=== PATIENT | male | born 1950 | race Two or more races ===

== ENCOUNTER 2016-09-11 10:31 | Emergency (ER) | payer MEDICARE ==
[2016-09-11 10:37] VITALS: BMI 27.4
--- NOTE | 2016-09-11 11:53 | PDOC ---
History of Present Illness - General Chief Complaint: Pain Stated Complaint: LT LEG PAIN Time Seen by Provider: 09/11/16 10:59 History Source: Patient Exam Limitations: No Limitations - History of Present Illness Initial Comments: 09/11/16 11:34 66-year-old male presents to the ED with complaints of worsening left posterior leg pain for the past 2 days now causing him difficulty to ambulate. Has not taken anything for the above and decided to go see Dr. Novoa who told him to go to the ER instead. Patient denies shortness of breath, recent surgery, recent illness, history of DVTs, recent change in medications, recent fall, chest pain, or dizziness. History of hypertension, dyslipidemia, arthritis and neuropathy. Timing/Duration: getting worse Associated Symptoms: denies: fever/chills, weakness Past History - Past Medical History Allergies/Adverse Reactions: Allergies Allergy/AdvReac Type Severity Reaction Status Date / Time No Known Allergies Allergy Verified 09/11/16 10:37 Home Medications: Ambulatory Orders Amlodipine Besylate [Norvasc -] 5 mg PO DAILY 09/11/16 Aspirin [ASA -] 81 mg PO DAILY 09/11/16 Baclofen 10 mg PO BID 09/11/16 Linagliptin/Metformin HCl [Jentadueto 2.5 mg-1000 mg Tab] 1 each PO BID Losartan Potassium 50 mg PO DAILY 09/11/16 Meloxicam 7.5 mg PO DAILY 09/11/16 Oxycodone HCl/Acetaminophen [Percocet 5-325 mg Tablet] 1 tab PO BID PRN #10 tab MDD 4 09/11/16 Pravastatin Sodium 20 mg PO DAILY 09/11/16 Diabetes: Yes HTN: Yes Hypercholesterolemia: Yes Other medical history: Arthritis, Neuropathy - Surgical History GI Surgery: (Kiney stones) - Psycho/Social/Smoking Cessation Hx Suicidal Ideation: No Smoking History: Never smoked Information on smoking cessation initiated: No Hx Alcohol Use: No Drug/Substance Use Hx: No Substance Use Type: None Patient Lives Alone: No Lives with/in: spouse/SO Review of Systems - Review of Systems Able to Perform ROS?: Yes Constitutional: No: Symptoms Reported HEENTM: No: Symptoms Reported Respiratory: No: Symptoms reported Cardiac (ROS): No: Symptoms Reported Musculoskeletal: Yes: Muscle Pain (left calf), Joint Stiffness (mild left knee) . No: Back Pain, Joint Pain, Joint Swelling, Muscle Weakness Neurological: No: Tingling, Weakness, Dizziness Endocrine: No: Symptoms Reported Hematologic/Lymphatic: No: Symptoms Reported *Physical Exam - Vital Signs Last Vital Signs Temp Pulse Resp BP Pulse Ox 97.5 F L 81 18 127/70 98 09/11/16 10:36 09/11/16 10:36 09/11/16 10:36 09/11/16 10:36 09/11/16 10:36 - Physical Exam General Appearance: Yes: Nourished, Appropriately Dressed. No: Apparent Distress Respiratory/Chest: positive: Lungs Clear, Normal Breath Sounds. negative: Respiratory Distress, Accessory Muscle Use Cardiovascular: positive: Regular Rhythm, Regular Rate. negative: Murmur Gastrointestinal/Abdominal: positive: Soft. negative: Tenderness Extremity: positive: Normal Capillary Refill, Normal Inspection, Normal Range of Motion, Tender (left calf), Other ( negative Homans). negative: Coldness, Delayed Capillary Refill, Pedal Edema, Swelling, Erythema Integumentary: positive: Normal Color, Warm, Moist Neurologic: positive: Motor Strength 5/5 (ambulatory but with limp and noted discomfort with weightbearing to the left lower extremity) ED Treatment Course - LABORATORY CBC & Chemistry Diagram: 09/11/16 12:43 09/11/16 12:43 - RADIOLOGY Radiology Studies Ordered: Category Date Time Status DUPLEX VASCUL US-1 LEG [US] Stat Ultrasound 09/11/16 11:09 Ordered Medical Decision Making - Medical Decision Making 09/11/16 11:48 Patient here with left leg pain worsened with ambulation and over the past 3 days. Patient had calf Tenderness on exam. Patient ordered for DVT study. Patient currently on pravastatin. Patient also concerning for muscle cramps related to statin usage. Patient will also be added for CBC, comp, CK, and magnesium level 09/11/16 16:15 Laboratory Tests 09/11/16 12:43 Sodium 141 Potassium 4.3 Chloride 104 Carbon Dioxide 25 Anion Gap 12 BUN 21 H Creatinine 0.9 Creat Clearance w eGFR > 60 Random Glucose 178 H Calcium 8.7 Magnesium 1.6 L Total Bilirubin 0.4 AST 30 ALT 22 Alkaline Phosphatase 62 Total Protein 6.3 L Albumin 3.7 Ultrasound negative for acute findings. Patient states feeling better after receiving the medication. Patient will be given 2 g of magnesium. 09/11/16 16:15 Patient does not have an IV access. Patient will be given magnesium oxide 800 mg and discharged home with recommendations to take Tylenol with Percocet. 09/11/16 16:30 Laboratory Tests 09/11/16 12:43 Creatine Kinase 114 Troponin I < 0.02 *DC/Admit/Observation/Transfer Diagnosis at time of Disposition: Left leg pain, Hypomagnesemia - Discharge Dispostion Disposition: HOME Condition at time of disposition: Improved - Prescriptions Prescriptions: Oxycodone HCl/Acetaminophen [Percocet 5-325 mg Tablet] 1 tab PO BID PRN #10 tab MDD 4 PRN Reason: Pain - Referrals Referrals: Enmanuel Novoa MD [Primary Care Provider] - - Patient Instructions Printed Discharge Instructions: DI for Leg Pain Additional Instructions: Please follow up with Dr. Novoa as your labs including your ultrasound were negative. May take 1 Percocet with 2 Tylenol to alleviate your discomfort
[2016-09-11 13:01] LABS: BASOPHIL 0.6 % (0-2.0); EOSINOPHIL 5.3 % (0-4.5); MCH 31.7 pg (25.7-33.7); MCHC 33.2 g/dl (32.0-35.9); MEAN CELL VOLUME 95.6 fl (80-96); MEAN PLT VOLUME 8.9 fl (7.5-11.1); NEUTROPHILS 70.2 % (42.8-82.8); PLATELET COUNT 184 K/MM3 (134-434); RDW 12.3 % (11.9-15.9); WHITE BLOOD COUNT 6.7 K/mm3 (4.0-10.0)
[2016-09-11] MEDS ORDERED: OXYCODONE/APAP 5/325MG COMBO TABLET PO ONE (14:15)
[2016-09-11] MEDS ORDERED: ACETAMINOPHEN 325 MG TABLET (FP) PO ONE (14:15)
[2016-09-11] MEDS ORDERED: ACETAMINOPHEN 325 MG TABLET (FP) ONE (14:16)
[2016-09-11] MEDS ORDERED: OXYCODONE/APAP 5/325MG COMBO TABLET ONE (14:17)
[2016-09-11 16:02] LABS: GLUCOSE,RANDOM 178 mg/dL (74-106)
[2016-09-11 16:03] LABS: ALBUMIN 3.7 g/dl (3.4-5.0); ANION GAP 12 (8-16); CALCIUM 8.7 mg/dL (8.5-10.1); CO2 25 mmol/L (21-32); MAGNESIUM 1.6 mg/dL (1.8-2.4)
[2016-09-11 16:11] LABS: ALK PHOS 62 U/L (45-117); BILIRUBIN,TOTAL 0.4 mg/dL (0.2-1.0); CREATININE 0.9 mg/dL (0.7-1.3); SGOT/AST 30 U/L (15-37); SGPT/ALT 22 U/L (12-78); TOT PROT 6.3 g/dl (6.4-8.2)
[2016-09-11] MEDS ORDERED: MAGNESIUM OXIDE 400 MG TABLET (FP) PO ONE (16:21)
[2016-09-11] MEDS ORDERED: MAGNESIUM OXIDE 400 MG TABLET (FP) ONE (16:26)
[2016-09-11] MEDS ORDERED: MAGNESIUM SULF 50% (8.12 MEQ/2 ML-1 GM VIAL) ONE (16:26)
[2016-09-11] MEDS: MAGNESIUM SULF 50% (8.12 MEQ/2 ML-1 GM VIAL) IVPB ONE ×2 (16:27→16:30)
[2016-09-11 16:28] LABS: TROPONIN I < 0.02 ng/ml (0.00-0.05)
[2016-09-11 16:38] VITALS: BP 134/74; PULSE 80; TEMP 98.6
== END 2016-09-11 16:37 | disposition home or self-care (01) ==
LOC: JER 10:31
PROC: 3E033GC Introduction of Other Therapeutic Substance into Peripheral Vein, Percutaneous Approach (ICD-10-PCS; principal; 2016-09-11)
DX: M79.662 Pain in left lower leg (principal); E83.42 Hypomagnesemia; I10 Essential (primary) hypertension; E11.9 Type 2 diabetes mellitus without complications; Z79.84 Long term (current) use of oral hypoglycemic drugs; E78.00 Pure hypercholesterolemia, unspecified; M12.9 Arthropathy, unspecified
CPT/HCPCS: 36415; 80053; 82550; 83735; 84484; 85025; 93971-TC; 99283-25

== ENCOUNTER 2016-10-01 12:11 | Inpatient (IN) | payer MEDICARE, OTHER ==
[2016-10-01 12:23] VITALS: BMI 25.2
--- NOTE | 2016-10-01 12:40 | PDOC ---
History of Present Illness - History of Present Illness Initial Comments: 10/01/16 12:43 The patient is a 66 year old male, with a significant past medical history of hypertension, dyslipidemia, arthritis, herniated discs, chronic left knee pain, and neuropathy (taking Gabapentin and Lyrica), who presents to the emergency department for progressive left lower extremity pain for 3 weeks. He states his pain radiates from the left side of his lower back down his left leg. He states he has not been able to bear weight on his left lower extremity or lie on his left side secondary to his pain. He reports calling Dr. Novoa this morning and being referred to the ED. The patient denies having recent x-rays of his spine. He denies chest pain, shortness of breath, headache and dizziness. He denies fever, chills, nausea, vomit, diarrhea and constipation. He denies dysuria, frequency, urgency and hematuria. Allergies: NKDA Social history: Denies toxic habits PCP - Dr. Novoa <Jackie De Jesus - Last Filed: 10/01/16 17:07> <Vania Abbott - Last Filed: 10/03/16 10:16> - General Chief Complaint: Pain Stated Complaint: LEFT LEG PAIN Time Seen by Provider: 10/01/16 12:26 Past History <Jackie De Jesus - Last Filed: 10/01/16 17:07> - Past Medical History Diabetes: Yes HTN: Yes Hypercholesterolemia: Yes - Surgical History GI Surgery: (Kiney stones) - Psycho/Social/Smoking Cessation Hx Anxiety: No Suicidal Ideation: No Smoking History: Never smoked Have you smoked in the past 12 months: No Information on smoking cessation initiated: No Hx Alcohol Use: No Drug/Substance Use Hx: No Substance Use Type: None <Vania Abbott - Last Filed: 10/03/16 10:16> - Past Medical History Allergies/Adverse Reactions: Allergies Allergy/AdvReac Type Severity Reaction Status Date / Time No Known Allergies Allergy Verified 10/01/16 12:23 Home Medications: Ambulatory Orders Amlodipine Besylate [Norvasc -] 5 mg PO DAILY 09/11/16 Aspirin [ASA -] 81 mg PO DAILY 09/11/16 Meloxicam 7.5 mg PO DAILY 09/11/16 Cyclobenzaprine HCl [Flexeril 10 mg] 1 tab PO DAILY 10/01/16 Gabapentin 300 mg PO TID 10/01/16 Insulin Degludec [Tresiba Flextouch U-200] 20 units SQ DAILY 10/01/16 [place]-3 Acid Ethyl Esters 1 tab PO TID 10/01/16 Pravastatin Sodium [Pravachol -] 1 tab PO DAILY 10/01/16 Pregabalin [Lyrica -] 50 mg PO TID 10/01/16 Review of Systems - Review of Systems Able to Perform ROS?: Yes Comments:: 10/01/16 12:43 GENERAL/CONSTITUTIONAL: No fever or chills. No weakness. HEAD, EYES, EARS, NOSE AND THROAT: No change in vision. No ear pain or discharge. No sore throat. CARDIOVASCULAR: No chest pain or shortness of breath. RESPIRATORY: No cough, wheezing, or hemoptysis. GASTROINTESTINAL: No nausea, vomiting, diarrhea or constipation. GENITOURINARY: No dysuria, frequency, or change in urination. MUSCULOSKELETAL: (+) LLE pain radiating from lumbar. No joint or muscle swelling. No neck pain. SKIN: No rash NEUROLOGIC: No headache, vertigo, loss of consciousness, or change in strength/ sensation. ENDOCRINE: No increased thirst. No abnormal weight change. HEMATOLOGIC/LYMPHATIC: No anemia, easy bleeding, or history of blood clots. ALLERGIC/IMMUNOLOGIC: No hives or skin allergy. <Jackie De Jesus - Last Filed: 10/01/16 17:07> *Physical Exam - Vital Signs Last Vital Signs Temp Pulse Resp BP Pulse Ox 98.4 F 126 H 24 141/81 99 10/01/16 12:20 10/01/16 12:20 10/01/16 12:20 10/01/16 12:20 10/01/16 12:20 - Physical Exam Comments: 10/01/16 12:47 GENERAL: (+) Pt appears uncomfortable. Awake, alert, and fully oriented, in no acute distress HEAD: No signs of trauma EYES: PERRLA, EOMI, sclera anicteric, conjunctiva clear ENT: Auricles normal inspection, hearing grossly normal, nares patent, oropharynx clear without exudates. Moist mucosa NECK: Normal ROM, supple, no lymphadenopathy, JVD, or masses LUNGS: Breath sounds equal, clear to auscultation bilaterally. No wheezes, and no crackles HEART: Regular rate and rhythm, normal S1 and S2, no murmurs, rubs or gallops ABDOMEN: Soft, nontender, normoactive bowel sounds. No guarding, no rebound. No masses EXTREMITIES: Normal range of motion, no edema. No clubbing or cyanosis. No cords, erythema, or tenderness NEUROLOGICAL: Cranial nerves II through XII grossly intact. Normal speech SKIN: Warm, Dry, normal turgor, no rashes or lesions noted. <Jackie De Jesus - Last Filed: 10/01/16 17:07> - Vital Signs Last Vital Signs Temp Pulse Resp BP Pulse Ox 98.4 F 126 H 24 141/81 99 10/01/16 12:20 10/01/16 12:20 10/01/16 12:20 10/01/16 12:20 10/01/16 12:20 <Vania Abbott - Last Filed: 10/03/16 10:16> ED Treatment Course - LABORATORY CBC & Chemistry Diagram: 10/01/16 17:50 10/01/16 17:50 <Vania Abbott - Last Filed: 10/03/16 10:16> Medical Decision Making - Medical Decision Making 10/01/16 12:49 Dr. Novoa was called at 12:43 and the patient's case was discussed. Dr. Novoa was paged via phone answering service at 17:09 requesting a callback for doctor to doctor consult. <Jackie De Jesus - Last Filed: 10/01/16 17:07> - Medical Decision Making On initial discussion with Dr. Novoa, he stated patient had chronic L knee pain and was being treated with analgesics and muscle relaxers. However, today the pain appears more consistent with sciatica. He has L low back pain radiating to the outer portion of the lower leg. After he received robaxin and two doses of percocet he did not improve at all. Will admit for pain control and further workup. <Vania Abbott - Last Filed: 10/03/16 10:16> *DC/Admit/Observation/Transfer - Attestations Scribe Attestion: 10/01/16 12:49 Documentation prepared by Jackie De Jesus, acting as durable medical equipment technician for Vania Abbott MD, MD <Jackie De Jesus - Last Filed: 10/01/16 17:07> - Discharge Dispostion Admit: Yes <Vania Abbott - Last Filed: 10/03/16 10:16> Diagnosis at time of Disposition: Back pain with left-sided sciatica, Intractable pain - Discharge Dispostion Condition at time of disposition: Stable - Referrals
[2016-10-01] MEDS ORDERED: OXYCODONE/APAP 5/325MG COMBO TABLET PO ONE ×2 (12:46→15:30)
[2016-10-01] MEDS ORDERED: OXYCODONE/APAP 5/325MG COMBO TABLET ONE ×2 (12:51→15:36)
[2016-10-01] MEDS ORDERED: METHOCARBAMOL 500 MG TABLET PO ONE (15:30)
[2016-10-01] MEDS ORDERED: METHOCARBAMOL 500 MG TABLET ONE (15:36)
[2016-10-01] MEDS ORDERED: ACETAMINOPHEN 325 MG TABLET (FP) PO PRN (17:34)
[2016-10-01] MEDS ORDERED: ONDANSETRON *ODT* 4 MG TABLET SL PRN (17:34)
[2016-10-01] MEDS ORDERED: morphine CARPU-JECT 4 MG/1 ML DISP.SYRIN IVPUSH PRN (17:34)
[2016-10-01 17:44] LABS: BASOPHIL 0.3 % (0-2.0); EOSINOPHIL 2.6 % (0-4.5); MCH 32.3 pg (25.7-33.7); MCHC 34.2 g/dl (32.0-35.9); MEAN CELL VOLUME 94.4 fl (80-96); MEAN PLT VOLUME 9.1 fl (7.5-11.1); NEUTROPHILS 68.2 % (42.8-82.8); PLATELET COUNT 212 K/MM3 (134-434); RDW 12.6 % (11.9-15.9); WHITE BLOOD COUNT 10.5 K/mm3 (4.0-10.0)
[2016-10-01 18:25] LABS: ALBUMIN 3.9 g/dl (3.4-5.0); ANION GAP 8 (8-16); BILIRUBIN,TOTAL 0.5 mg/dL (0.2-1.0); CO2 26 mmol/L (21-32); COCKROFT - GAULT 75.11; CREATININE 0.9 mg/dL (0.7-1.3); GLUCOSE,RANDOM 227 mg/dL (74-106); SGPT/ALT 37 U/L (12-78)
[2016-10-01 18:26] LABS: ALK PHOS 77 U/L (45-117)
[2016-10-01 18:27] LABS: SGOT/AST 44 U/L (15-37)
[2016-10-01 19:05] LABS: MCH 31.7 pg (25.7-33.7); MCHC 33.7 g/dl (32.0-35.9); MEAN CELL VOLUME 94.1 fl (80-96); MEAN PLT VOLUME 9.7 fl (7.5-11.1); PLATELET COUNT 202 K/MM3 (134-434); RDW 12.3 % (11.9-15.9); WHITE BLOOD COUNT 10.5 K/mm3 (4.0-10.0)
[2016-10-01 19:32] LABS: ALBUMIN 3.8 g/dl (3.4-5.0); ALK PHOS 79 U/L (45-117); ANION GAP 10 (8-16); BILIRUBIN,TOTAL 0.4 mg/dL (0.2-1.0); CALCIUM 9.1 mg/dL (8.5-10.1); CO2 27 mmol/L (21-32); GLUCOSE,RANDOM 214 mg/dL (74-106); SGOT/AST 35 U/L (15-37); SGPT/ALT 36 U/L (12-78); TOT PROT 6.8 g/dl (6.4-8.2)
[2016-10-01 20:43] LABS: C-REACTIVE PROTEIN 0.7 MG/DL (0.00-0.3)
[2016-10-01] MEDS ORDERED: diazePAM CARPU-JECT 10 MG/2 ML DISP.SYRIN IVPUSH ONE (20:59)
[2016-10-01] MEDS ORDERED: INSULIN (NOVOLOG) ASPART 100 UNITS/ML 10ML VIAL ONE (21:08)
[2016-10-01] MEDS: INSULIN SLIDING SCALE (NOVOLOG) 1 VIAL SQ SCH (21:18)
[2016-10-01] MEDS: HEPARIN NA (PORCINE) 5,000 UNITS/ML 1ML VIAL SQ SCH (21:19)
[2016-10-01] MEDS ORDERED: INSULIN DETEMIR 100 UNITS/ML MDV SQ SCH (22:00)
[2016-10-01 22:14] LABS: ERYTHROCYTE SEDIMENTATION RATE 32 mm/hr (0-20)
[2016-10-02] MEDS: INSULIN SLIDING SCALE (NOVOLOG) 1 VIAL SQ SCH ×4 (06:32→21:24)
--- NOTE | 2016-10-02 08:40 | PN ---
Progress Note (short form) - Note Progress Note: NEUROSURGERY CONSULT DICTATED Chart reviewed Pt examined H/o hypertension, osteoarthritis, DM, DDD (old work injury years ago), chronic left knee pain, and LE neuropathy (numbness and tingling) on Gabapentin and Lyrica, c/o progressive left lower extremity pain for 3 weeks. Pain radiates from the left LB down his left posterior thigh, calf and ankle. States he has not been able to bear weight/walk on his left lower extremity or lie on his left side. PE: AF, VSS HEENT- NC/AT; Neck- supple; Cor- RRR; Lungs- CTA B; Abd-benign; Ext- no sign of DVT; 1-2+ pulses CN- intact; Motor 5/5 except L PF 4+; Sensation- decreased vibration B feet; DTR - hyporeflexia B LE except R knee 2+ LS spine x-rays- extensive spondylosis and mild kyphosis over TL junction, no acute fx LS spine CT- Multilevel spondylosis and facet hypertrophy, worst mid and lower LS spine; calcified central disc protrusion L5-S1, B foramenal narrowing L4-5, L5-S1 and R L2-3 and L3-4 foramenal narrowing; mild-moderate central stenosis ( chronic given calcification) LS spine MRI recommended though pt states he is extremely claustrophobic and needs open MRI Pain management consult Consider urology input EMG/NCS lowers Restart gabapentin
[2016-10-02 09:07] LABS: URINE APPEARANCE CLEAR; URINE BILIRUBIN NEGATIVE (NEGATIVE); URINE BLOOD NEGATIVE (NEGATIVE); URINE COLOR YELLOW; URINE GLUCOSE (UA) 3+ (NEGATIVE); URINE KETONE NEGATIVE (NEGATIVE); URINE LEUK ESTERASE NEGATIVE (NEGATIVE); URINE NITRITE NEGATIVE (NEGATIVE); URINE PROTEIN NEGATIVE (NEGATIVE); URINE UROBILINOGEN NEGATIVE E.U./dl (0.2-1.0)
[2016-10-02] MEDS ORDERED: diazePAM 5 MG TABLET PO ONE ×2 (09:31→18:30)
--- NOTE | 2016-10-02 09:53 | PN ---
Progress Note (short form) - Note Progress Note: Pt is a 66 year old male pt with c/o acute on chronic LBP, and recent left leg sciatica. It got so severe he was unable to ambulate, and presented to the ER. This morning he states the pain is definitely about 30% improved, maybe more. While lyinh in bed the LLE sciatica is much better as well. AVSS Pt The pt is in no acute distress, he looks very comfortable. Min tenderness to palpation over the LS spine, and the paraspinal muscles. The LLE looks good, he is in little to no pain with motion, motion at the left hip, knee, ankle, foot, toes are all nl Excellent strength throughout including 5/5 ankle DF/PF, hip flexion, knee flexion and extension. No pain with resistance testing. Left hip looks good, no pain with motion, IR/ER, log rolling or axial load. LLE overall looks good and is NVI. Xrays Show LS OA, no acute pathology except reversal of lumbar lordosis CT Scan LS spine Show LS OA, L5-S1 spinal stenosis, L2-3-4 OA and hypertrophic disc complex impinging on the RIGHT L4-5-S1 neural foramen. Imp 66 yo M with [id number] LBP and Left leg sciatica, studies show OA with impingement. Rec Consult by Dr Reji Osman Options include surgery, epidural cortisone injection, oral steroids, pain meds, P.T.
[2016-10-02] MEDS: amLODIPine BESYLATE 5 MG TABLET (FP) PO SCH (09:57)
[2016-10-02] MEDS: RANITIDINE HCL 150 MG TABLET (FP) PO SCH (09:57)
[2016-10-02] MEDS: LOSARTAN POTASSIUM 50 MG TABLET (FP) PO SCH (09:57)
[2016-10-02] MEDS: HEPARIN NA (PORCINE) 5,000 UNITS/ML 1ML VIAL SQ SCH ×2 (09:57→21:23)
--- NOTE | 2016-10-02 10:21 | CONS ---
DATE OF CONSULTATION: REQUESTING PHYSICIAN: Enmanuel Novoa MD CONSULTING PHYSICIAN: Jenaro Quezada MD CHIEF COMPLAINT: Left lower extremity radiculopathy. HISTORY OF PRESENT ILLNESS: The patient is a 66-year-old right-handed male with a history of lumbar disk herniation from an old work injury decades ago, hypertension, osteoarthritis, diabetes, chronic left knee pain, and peripheral neuropathy of the lower extremities who complains of increasing left lower extremity pain over 3 weeks' duration. He denies any recent trauma or fall. He was not involved in an accident. The pain radiates from the left side of the lower back to the left buttock, posterior thigh, calf, and ankle. He has not been able to bear weight on his left lower extremity and walk because of the pain. He received a lot of pain medication in the emergency room and was not able to void, and a Heller catheter was inserted as a result. He has no prior bowel or bladder dysfunction. He has minimal right lower extremity symptoms. There has been no recent fever or chills, and he has no recent infection reported. There is no history of systemic malignancy. PAST MEDICAL HISTORY: Significant for lumbar degenerative disk disease, diabetes, peripheral neuropathy, hypertension, osteoarthritis. CURRENT MEDICATIONS: Included Tylenol, Cozaar, subcutaneous heparin, Norvasc, Zantac, NovoLog, Levemir, morphine. ALLERGIES: There is no known drug allergy. FAMILY HISTORY: Noncontributory. SOCIAL HISTORY: He does not smoke and only drinks alcohol socially. He is retired. REVIEW OF SYSTEMS: Otherwise negative for other major cardiovascular, pulmonary , gastrointestinal, genitourinary, endocrinologic, neurologic, or psychological problems except for the above. PHYSICAL EXAMINATION: Vital Signs: Temperature 97.8, blood pressure 142/78 with pulse rate 97, O2 saturation 99% on room air. HEENT: Shows her to be normocephalic and atraumatic. Anicteric. Neck: Supple with no lymphadenopathy. There is no carotid bruit. Coronary: Demonstrates a regular rhythm. Lungs: Clear bilaterally. Abdomen: Benign. Extremities: Shows no signs of DVT. Distal pulses are 1 to 2+ and symmetric bilaterally and distally in the lower extremities. Neurologic: He is awake, alert, and oriented x3. Cranial nerves are grossly intact 2-12. Motor examination shows 5/5 strength except for left foot plantar flexion , which is 4+/5 limited by pain. Sensory examination is intact to light touch and pinprick even though he has decreased distal vibratory sensation at distal bilateral lower extremities consistent with peripheral neuropathy. Deep tendon reflexes are generally hyporeflexive. He does have normal reflexes right knee. There is no pathologic long tract sign. LABORATORY EXAMINATION: Shows BUN 31 and creatinine 1, estimated GFR greater than 60, serum glucose 214, hemoglobin A1C is pending. White blood cell count 10,500 , hemoglobin 14.3, hematocrit 42.6, ESR 32, platelet count 202. Urinalysis is pending. X-rays of the lumbar spine demonstrated multilevel degenerative disk disease and spondylosis. There is reversal with normal lumbar lordosis at thoracolumbar junction. There is no acute fracture or dislocation. CT scan of the lumbar spine demonstrated multilevel degenerative disk disease. There is slight kyphosis of the thoracolumbar junction similar to lumbar spine x-rays. There is an osteophyte of L2-L3 and L3-L4 resulting in foraminal narrowing. This is also combined with degenerative broad-based disk bulge. There is disk bulge at L4-L5 and S1 with bilateral foraminal narrowing. There is mild spinal stenosis at L5-S1 level secondary to the facet hypertrophy, broad-based calcified disk protrusion as well as ligamentum hypertrophy. IMPRESSION: 1. Multilevel lumbar degenerative disk disease with central calcified disk protrusion at L5-S1. 2. Clinical left S1 radiculopathy. 3. Diabetes with diabetic peripheral neuropathy. 4. Osteoarthritis. 5. Hypertension. RECOMMENDATIONS: The patient presents with chronic back pain in the past from old work-related injuries from decades earlier. He has a [id number] of acute left-sided sciatica and has difficulty with ambulation. CT scan demonstrated chronic disk protrusion at L5-S1 with some spinal canal narrowing at that level. An MRI of the lumbar spine is recommended; however, the patient states that he is extremely claustrophobic and will need an open MRI. Given his acute sciatica, one would like to consider continuing gabapentin right now as a neurotrophic agent for the treatment of his current condition. Pain management consult input is appropriate at this time. An EMG and nerve conduction studies also are indicated to rule out left S1 radiculopathy versus peripheral neuropathy. Given that CT scan only demonstrated chronic findings, it is unlikely that his current worsening of the bladder function is related to that. Perhaps Urology consult could be considered given his extending urinary bladder and history of diabetes. This could be a sequel to diabetic peripheral neuropathy as well. JENARO QUEZADA M.D. KEMAR/[id number] MTDD
--- NOTE | 2016-10-02 10:55 | HP ---
Admitting History and Physical - Primary Care Physician PCP: Enmanuel Novoa - Admission Chief Complaint: SEVERE BACK PAIN WITH NUMBNESS IN LEGS/URINARY RETENTION/ LUMBAGO ACUTE History of Present Illness: PATIENT HAS HAD SEVERE BACK WORSENING OVER THE LAST WEEK WITH SEVERE NUMBNESS TINGLING IN LEGS, DEVELOPED URINARY RETENTION WHERE A KEATING WAS INSERTRED TO VOID. HISTORY OF DM/HTN/OA. History Source: Patient Limitations to Obtaining History: No Limitations - Past Medical History Cardiovascular: Yes: HTN Musculoskeletal: Yes: Osteoarthritis Endocrine: Yes: Diabetes Insipidus - Smoking History Smoking history: Never smoked Have you smoked in the past 12 months: No - Alcohol/Substance Use Hx Alcohol Use: No Home Medications - Allergies Allergies/Adverse Reactions: Allergies Allergy/AdvReac Type Severity Reaction Status Date / Time No Known Allergies Allergy Verified 10/01/16 12:23 - Home Medications Home Medications: Ambulatory Orders Amlodipine Besylate [Norvasc -] 5 mg PO DAILY 09/11/16 Aspirin [ASA -] 81 mg PO DAILY 09/11/16 Meloxicam 7.5 mg PO DAILY 09/11/16 Cyclobenzaprine HCl [Flexeril 10 mg] 1 tab PO DAILY 10/01/16 Gabapentin 300 mg PO TID 10/01/16 Insulin Degludec [Tresiba Flextouch U-200] 20 units SQ DAILY 10/01/16 Lane-3 Acid Ethyl Esters 1 tab PO TID 10/01/16 Pravastatin Sodium [Pravachol -] 1 tab PO DAILY 10/01/16 Pregabalin [Lyrica -] 50 mg PO TID 10/01/16 Review of Systems - Review of Systems Constitutional: reports: Loss of Appetite Eyes: reports: No Symptoms HENT: reports: No Symptoms Neck: reports: No Symptoms Cardiovascular: reports: No Symptoms Respiratory: reports: No Symptoms Gastrointestinal: reports: No Symptoms Genitourinary: reports: Dysuria, Pain, Other (RETENTION) Musculoskeletal: reports: Back Pain Integumentary: reports: No Symptoms Neurological: reports: Numbness, Parasthesia, Unsteady Gait, Weakness Endocrine: reports: No Symptoms Hematology/Lymphatic: reports: No Symptoms Psychiatric: reports: No Symptoms Physical Examination Vital Signs: Vital Signs Temperature 97.8 F 10/02/16 06:00 Pulse Rate 97 H 10/02/16 06:00 Respiratory Rate 20 10/02/16 06:00 Blood Pressure 142/78 10/02/16 06:00 O2 Sat by Pulse Oximetry (%) 99 10/02/16 03:00 Constitutional: Yes: Severe Distress Eyes: Yes: WNL HENT: Yes: WNL Neck: Yes: WNL Cardiovascular: Yes: WNL Respiratory: Yes: WNL Gastrointestinal: Yes: WNL Renal/: Yes: [place] Present, Oliguria Musculoskeletal: Yes: Back Pain Extremities: Yes: Other Edema: No Peripheral Pulses WNL: Yes Integumentary: Yes: Other Wound/Incision: Yes: Clean/Dry Neurological: Yes: Numbness, Paresthesia, Tingling, Unsteady Gait, Weakness ...Motor Strength: LLE, RLE Psychiatric: Yes: Other Labs: CBC, BMP 10/01/16 17:50 10/01/16 17:50 Imaging - Results Cat Scan: Report Reviewed Problem List - Problems (1) Back pain with left-sided sciatica Code(s): M54.32 - SCIATICA, LEFT SIDE (2) Intractable pain Code(s): R52 - PAIN, UNSPECIFIED (3) Hypomagnesemia Code(s): E83.42 - HYPOMAGNESEMIA (4) Left leg pain Code(s): M79.605 - PAIN IN LEFT LEG (5) Acute urinary retention Code(s): R33.8 - OTHER RETENTION OF URINE Assessment/Plan DECADRON IV STARTED TO DECOMPRESS LUMBAR DISC MONITOR BGM CLOSELY DM, LEVEMIR INCREASED BID KEATING INSERTED FOR URINARY RETENTION NEUROSURGERY AND ORTHOPEDIC EVAL MRI LSPINE TODAY CHANGE TO ADMISSION
[2016-10-02] MEDS ORDERED: INSULIN (NOVOLOG) ASPART 100 UNITS/ML 10ML VIAL ONE ×2 (11:45→21:20)
[2016-10-02] MEDS: DEXAMETHASONE SOD PHOSPHATE 4 MG/1 ML VIAL IVPB SCH ×2 (11:48→17:37)
--- NOTE | 2016-10-02 11:48 | CONSULT ---
Consult - text type - Consultation Consultation Note: Neurology The patient is a 66 year old male, with a significant past medical history of hypertension, dyslipidemia, arthritis, herniated discs, chronic left knee pain, and neuropathy (taking Gabapentin and Lyrica), who presented to the emergency department for progressive left lower extremity pain for 3 weeks. He states his pain radiates from the left side of his lower back down his left leg. He states he has not been able to bear weight on his left lower extremity or lie on his left side secondary to his pain. He reports calling Dr. Novoa this morning and being referred to the ED. The patient denies having recent imaging. He had physical therapy visit this morning and was not able to bear weight according to the nurse. He has been put on pain medication and seen by Dr. Reji Osman as well as Dr. Batista. EMG ordered to evaluate for radiculopathy, not likely neuropathy given distribution of symptoms of sciatica. Pain mgmt may be helpful. - General Chief Complaint: Pain Stated Complaint: LEFT LEG PAIN Time Seen by Provider: 10/01/16 12:26 Past History - Past Medical History Diabetes: Yes HTN: Yes Hypercholesterolemia: Yes - Surgical History GI Surgery: (Kiney stones) - Psycho/Social/Smoking Cessation Hx Anxiety: No Suicidal Ideation: No Smoking History: Never smoked Have you smoked in the past 12 months: No Information on smoking cessation initiated: No Hx Alcohol Use: No Drug/Substance Use Hx: No Substance Use Type: None - Past Medical History Allergies/Adverse Reactions: Allergies Allergy/AdvReac Type Severity Reaction Status Date / Time No Known Allergies Allergy Verified 10/01/16 12:23 Active Medications Acetaminophen (Tylenol -) 650 mg PO Q6H PRN PRN Reason: FEVER OR PAIN Amlodipine Besylate (Norvasc -) 5 mg PO DAILY [facility] Last Admin: 10/02/16 09:57 Dose: 5 mg Dexamethasone Sodium Phosphate (Decadron Injection -) 4 mg IVPB Q8H-IV [facility] Last Admin: 10/02/16 11:48 Dose: 4 mg Gabapentin (Neurontin -) 300 mg PO TID [facility] Heparin Sodium (Porcine) (Heparin -) 5,000 unit SQ BID [facility] Last Admin: 10/02/16 09:57 Dose: 5,000 unit Insulin Aspart (Novolog Vial Sliding Scale -) 1 vial SQ ACHS [facility] PRN Reason: Protocol Last Admin: 10/02/16 11:49 Dose: 2 units Insulin Detemir (Levemir Vial) 20 units SQ BID@0700,2200 [facility] Losartan Potassium (Cozaar -) 50 mg PO DAILY [facility] Last Admin: 10/02/16 09:57 Dose: 50 mg Morphine Sulfate (Morphine Injection -) 4 mg IVPUSH Q4H PRN PRN Reason: PAIN Last Admin: 10/02/16 05:16 Dose: 4 mg Ondansetron HCl (Zofran Odt -) 4 mg SL Q6H PRN PRN Reason: NAUSEA AND/OR VOMITING Ranitidine HCl (Zantac -) 150 mg PO DAILY [facility] Last Admin: 10/02/16 09:57 Dose: 150 mg Review of Systems GENERAL/CONSTITUTIONAL: No fever or chills. No weakness. HEAD, EYES, EARS, NOSE AND THROAT: No change in vision. No ear pain or discharge. No sore throat. CARDIOVASCULAR: No chest pain or shortness of breath. RESPIRATORY: No cough, wheezing, or hemoptysis. GASTROINTESTINAL: No nausea, vomiting, diarrhea or constipation. GENITOURINARY: No dysuria, frequency, or change in urination. MUSCULOSKELETAL: (+) LLE pain radiating from lumbar. No joint or muscle swelling. No neck pain. SKIN: No rash NEUROLOGIC: No headache, vertigo, loss of consciousness, or change in strength/ sensation. ENDOCRINE: No increased thirst. No abnormal weight change. HEMATOLOGIC/LYMPHATIC: No anemia, easy bleeding, or history of blood clots. ALLERGIC/IMMUNOLOGIC: No hives or skin allergy. *Physical Exam - Vital Signs Last Vital Signs Temp Pulse Resp BP Pulse Ox 98.4 F 126 H 24 141/81 99 10/01/16 12:20 10/01/16 12:20 10/01/16 12:20 10/01/16 12:20 10/01/16 12:20 GENERAL: (+) Pt appears uncomfortable. Awake, alert, and fully oriented, in no acute distress HEAD: No signs of trauma EYES: PERRLA, EOMI, sclera anicteric, conjunctiva clear ENT: Auricles normal inspection, hearing grossly normal, nares patent, oropharynx clear without exudates. Moist mucosa NECK: Normal ROM, supple, no lymphadenopathy, JVD, or masses LUNGS: Breath sounds equal, clear to auscultation bilaterally. No wheezes, and no crackles HEART: Regular rate and rhythm, normal S1 and S2, no murmurs, rubs or gallops ABDOMEN: Soft, nontender, normoactive bowel sounds. No guarding, no rebound. No masses EXTREMITIES: Normal range of motion, no edema. No clubbing or cyanosis. No cords, erythema, or tenderness NEUROLOGICAL: Cranial nerves II through XII grossly intact. Normal speech, Motor 5/5 except LLE 4/5; reflexes 1+, gait deferred SKIN: Warm, Dry, normal turgor, no rashes or lesions noted. Imaging: LS spine x-rays- extensive spondylosis and mild kyphosis over TL junction, no acute fx LS spine CT- Multilevel spondylosis and facet hypertrophy, worst mid and lower LS spine; calcified central disc protrusion L5-S1, B foramenal narrowing L4-5, L5-S1 and R L2-3 and L3-4 foramenal narrowing; mild-moderate central stenosis ( chronic given calcification) Plan: 66 year old male, with a significant past medical history of hypertension, dyslipidemia, arthritis, herniated discs, chronic left knee pain, and neuropathy (taking Gabapentin and Lyrica), who presented to the emergency department for progressive left lower extremity pain for 3 weeks. He states his pain radiates from the left side of his lower back down his left leg. He states he has not been able to bear weight on his left lower extremity or lie on his left side secondary to his pain. He reports calling Dr. Novoa this morning and being referred to the ED. The patient denies having recent imaging. Agree with MRI L spine, may require sedative. Seen by Dr. Reji Osman as well as Dr. Batista. Surgical intervention as per them EMG ordered to evaluate for radiculopathy, not likely neuropathy given distribution of symptoms of sciatica. Pain mgmt consult may be helpful. Monitor sedation with opiod medications (morphine) Agree with Decadron, monitor surgars, on Insulin for DM PPI Continue physical therapy as able DVT ppx Fall precautions
[2016-10-02] MEDS: INSULIN DETEMIR 100 UNITS/ML MDV SQ SCH ×3 (12:28→21:24)
[2016-10-02] MEDS: GABAPENTIN 300 MG CAPSULE (FP) PO SCH ×2 (13:09→21:47)
--- NOTE | 2016-10-02 19:00 | CONSULT ---
Consult - text type - Consultation Consultation Note: CC: acute urinary retention HPI: Patient is a 66 year old male with lumbosacral disc herniation admitted for pain. The patient was unable to void and the bladder scan showed 800 cc and a holcomb was placed with 1000 cc drained of clear urine. The patient had moderate symptoms of prostatism prior. PE 3+ prostate imp acute urinary retention due of lumbosacral disease on narcotics plan started on flomax and will remove holcomb on Thursday morning
--- NOTE | 2016-10-02 19:42 | CONS ---
DATE OF CONSULTATION: 10/02/2016 DATE OF ELECTRODIAGNOSTIC STUDIES: 10/02/2016 PHYSICAL MEDICINE REHABILITATION CONSULTATION HISTORY OF PRESENT ILLNESS: The patient is a 66-year-old male with past medical history of diabetes, peripheral neuropathy, as well as a distant history of disk herniation who presented with progressive pain in the left lower extremity for the last 3-4 weeks. Patient states prior to onset, he had minor discomfort in his back and left knee but developed severe pain. The pain can start in his back and radiate down into the left ankle and foot. He already has numbness in both of his feet and wears socks to bed for the last 2 years, and this has been diagnosed at least clinically with polyneuropathy treated with gabapentin, Lyrica. Patient is unable to put any pressure into the left foot. He was admitted, undergoing a CAT scan of the lumbar spine as well as x-rays to the lumbar spine . There was marked diffuse disk bulging resulting in bilateral neuroforaminal impingement at L4-5 and L5-S1. Spinal stenosis is also noted at L5-S1. There was a disk osteophyte on the right side at L2-3, but he has only mild symptoms on the right side. Patient's x-rays showed degenerative changes on the facet joints. Patient started on medication, IV steroids, Decadron. He is on subcutaneous heparin for DVT prophylaxis and Neurontin 300 mg 3 times a day, but continues to have significant pain. He has chronic rotator cuff tear on the left shoulder. PAST MEDICAL AND SURGICAL HISTORY: Again, he did have a disk herniation decades ago, history of hypertension, dyslipidemia, diabetes with elevated hemoglobin A1c. Possible surgery for kidney stone. SOCIAL HISTORY: Lives with his in a basement apartment. Apparently she has problems with her mobility. There are 3 steps, and premorbidly again he was able to ambulate without an assistive device 4 weeks ago but progressive difficulty with his mobility. Current function, patient states he has been unable to stand or put weight into the left lower extremity. He was seen by physical therapy and attempted to stand. He transferred to sit-stand with minimal assistance, but only able to stand for a brief time with minimum assist and using a walker due to severe back pain and left lower extremity pain. REVIEW OF SYSTEMS: No headache. No dizziness. No blurry vision, dull vision. No nausea, vomiting, difficulty swallowing, difficulty chewing. No chest pain, shortness of breath, fever or chills. No bowel incontinence. He has a Heller catheter and he had numbness in the upper and lower extremities, coldness in his feet, particularly at night. Back pain radiating into the left ankle and hughes. Chronic weakness in the left shoulder, difficulty elevating the shoulder. Review of blood work on admission sodium 140, potassium 4.4, elevated BUN 31, creatinine normal at 1.0. B12 was normal at 535. C-reactive protein mildly high at 0.7. Hemoglobin A1c was quite high at 8.0. CBC showed mild elevation WBC 10.5 on admission and repeated 10.5 also. Hemoglobin normal 14.3, platelet count 202, ESR slightly elevated at 32. On examination, patient seen lying in a stretcher. He is in some distress, especially when trying to turn. PHYSICAL EXAMINATION: HEENT: Normocephalic, atraumatic. Extraocular muscles appear intact. Neck: Supple. Back: He has some tenderness in his left lumbosacral paraspinals, left gluteal musculature, positive straight leg raise test on the left. Extremities: Without any pitting edema or calf tenderness. Neuromuscular: He is awake, alert, cooperative. Cranial nerves 2-12 appear grossly intact. Diminished sensation distally in the upper and lower extremities to pinprick, cold temperature, vibration, but fairly good motor power. He does have some atrophy in the feet, intrinsic muscles, but otherwise fairly good motor power in the lower extremities. He has weakness in the left shoulder girdle with a positive drop arm and some tightness and difficulty supinating in the left upper extremity but fairly good muscle bulk and good strength in the proximal right upper extremity. Good passive range in the left shoulder. Reflexes are absent. Results of EMG nerve conduction studies, please refer to report for details. OVERALL IMPRESSION: 1. Left L4 and L5 acute radiculopathy. 2. Underlying severe axonal and demyelinating sensory motor polyneuropathy consistent with an advanced diabetic polyneuropathy which is probably incidental. 3. No electrodiagnostic evidence of right lumbosacral radiculopathy. 4. Difficult gait disorder. 5. Canal stenosis noted on CAT scan with underlying neuroforaminal narrowing at multiple levels. 6. Noncontrolled diabetes with complicated by peripheral neuropathy. 7. Hypertension. 8. Osteoarthritis. 9. Elevated risk for deep vein thrombosis due to immobility. 10. Elevated white blood cell and slightly elevated ESR and CRP. 11. Heller catheter. PLAN AND SUGGESTION: 1. Follow up with Dr. Osman and Dr. Obregon 2, Continue physical therapy. 3. Pain management. 4. Patient is on IV steroids. 5. Consider increasing gabapentin to 600 mg 4 times a day. 6. Agree with subcutaneous heparin. 7. Skin precaution. 8. Bowel regimen. 9. Wean Heller when able. 10. May require short term rehabilitation in prison facility. Thank you for this referral. JESUS DUNLAP M.D. QUAN/[id number] MTDD
[2016-10-03] MEDS: DEXAMETHASONE SOD PHOSPHATE 4 MG/1 ML VIAL IVPB SCH ×3 (02:21→17:45)
[2016-10-03] MEDS: GABAPENTIN 300 MG CAPSULE (FP) PO SCH ×3 (06:03→21:53)
--- NOTE | 2016-10-03 06:12 | PN ---
Progress Note (short form) - Note Progress Note: NEUROSURGERY H/o hypertension, osteoarthritis, DM, DDD (old work injury years ago), chronic left knee pain, and LE neuropathy (numbness and tingling), c/o progressive left lower extremity pain for 3 weeks. Pain radiates from the left LB down his left posterior thigh, calf and ankle. States he has not been able to bear weight/ walk on his left lower extremity. Pain better today. Seen by urology. On flomax. Able to void since Helelr out. PE: AF, VSS HEENT- NC/AT; Neck- supple; Cor- RRR; Lungs- CTA B; Abd-benign; Ext- no sign of DVT; 1-2+ pulses CN- intact; Motor 5/5 except L PF 4+; Sensation- decreased vibration B feet; DTR - hyporeflexia B LE except R knee 2+ LS spine x-rays- extensive spondylosis and mild kyphosis over TL junction, no acute fx LS spine CT- Multilevel spondylosis and facet hypertrophy, worst mid and lower LS spine; calcified central disc protrusion L5-S1, B foramenal narrowing L4-5, L5-S1 and R L2-3 and L3-4 foramenal narrowing; mild-moderate central stenosis ( chronic given calcification) MRI (prelim)- T10-11 and T11-12 disc protrusion with mild thecal sac impingement ; L L1-2 paracentral disc protrusion with L sided thecal sac impingement; R L3- 4 paracentral disc protrusion with thecal sac and R L4 root impingement; board disc protrusion L4-5 and L5-S1 the moderate canal stenosis and lateral recess stenosis; L3-4 retrolisthesis, facet hypertrophy EMG/NCS - moderate peripheral neuropathy; acute L L4-5 radiculopathy Multilevel disease (R,L, bilateral) making surgical tx less favorable with more uncertain outcome given overlapping neuropathy Pt would like to avoid surgery Consider pain management consult given 3 weeks of acute symptoms Restarted on gabapentin Pain overall better PT regimen
[2016-10-03] MEDS: INSULIN SLIDING SCALE (NOVOLOG) 1 VIAL SQ SCH ×4 (06:43→21:53)
[2016-10-03] MEDS: TAMSULOSIN HCL 0.4 MG CAP.ER.24H (FP) PO SCH (09:18)
[2016-10-03] MEDS: RANITIDINE HCL 150 MG TABLET (FP) PO SCH (09:19)
[2016-10-03] MEDS: HEPARIN NA (PORCINE) 5,000 UNITS/ML 1ML VIAL SQ SCH ×2 (09:20→21:53)
[2016-10-03] MEDS: LOSARTAN POTASSIUM 50 MG TABLET (FP) PO SCH ×2 (09:40→17:46)
[2016-10-03] MEDS: INSULIN DETEMIR 100 UNITS/ML MDV SQ SCH ×3 (09:40→21:52)
[2016-10-03] MEDS: amLODIPine BESYLATE 5 MG TABLET (FP) PO SCH ×2 (09:40→17:46)
--- NOTE | 2016-10-03 15:17 | PN ---
Progress Note, Physician Chief Complaint: AWAKE ALERT PATIENT REMOVED THE KEATING HIMSELF VOIDED 100 CC OF URINE JUST NOW ON FLOMAX FEELING SLIGHTLY BETTER - Current Medication List Current Medications: Active Medications Acetaminophen (Tylenol -) 650 mg PO Q6H PRN PRN Reason: FEVER OR PAIN Amlodipine Besylate (Norvasc -) 5 mg PO DAILY [facility] Last Admin: 10/03/16 09:40 Dose: Not Given Dexamethasone Sodium Phosphate (Decadron Injection -) 4 mg IVPB Q8H-IV [facility] Last Admin: 10/03/16 09:19 Dose: 4 mg Gabapentin (Neurontin -) 300 mg PO TID [facility] Last Admin: 10/03/16 14:18 Dose: 300 mg Heparin Sodium (Porcine) (Heparin -) 5,000 unit SQ BID [facility] Last Admin: 10/03/16 09:20 Dose: 5,000 unit Insulin Aspart (Novolog Vial Sliding Scale -) 1 vial SQ ACHS [facility] PRN Reason: Protocol Last Admin: 10/03/16 12:34 Dose: 4 units Insulin Detemir (Levemir Vial) 20 units SQ BID@0700,2200 [facility] Last Admin: 10/03/16 09:40 Dose: Not Given Losartan Potassium (Cozaar -) 50 mg PO DAILY [facility] Last Admin: 10/03/16 09:40 Dose: Not Given Morphine Sulfate (Morphine Injection -) 4 mg IVPUSH Q4H PRN PRN Reason: PAIN Last Admin: 10/02/16 05:16 Dose: 4 mg Ondansetron HCl (Zofran Odt -) 4 mg SL Q6H PRN PRN Reason: NAUSEA AND/OR VOMITING Ranitidine HCl (Zantac -) 150 mg PO DAILY [facility] Last Admin: 10/03/16 09:19 Dose: 150 mg Tamsulosin HCl (Flomax -) 0.4 mg PO DAILY@0830 [facility] Last Admin: 10/03/16 09:18 Dose: 0.4 mg - Objective Vital Signs: Vital Signs Temperature 97.8 F 10/03/16 13:57 Pulse Rate 105 H 10/03/16 13:57 Respiratory Rate 20 10/03/16 11:00 Blood Pressure 114/62 10/03/16 13:57 O2 Sat by Pulse Oximetry (%) 99 10/03/16 06:00 Constitutional: Yes: Mild Distress Eyes: Yes: WNL HENT: Yes: WNL Neck: Yes: WNL Cardiovascular: Yes: WNL Respiratory: Yes: WNL Gastrointestinal: Yes: WNL Genitourinary: Yes: Other Musculoskeletal: Yes: Back Pain, Muscle Weakness Extremities: Yes: WNL Edema: No Peripheral Pulses WNL: Yes Integumentary: Yes: WNL Wound/Incision: Yes: Clean/Dry Neurological: Yes: Unsteady Gait, Weakness ...Motor Strength: LLE, RLE Psychiatric: Yes: Other Problem List - Problems (1) Back pain with left-sided sciatica Code(s): M54.32 - SCIATICA, LEFT SIDE (2) Intractable pain Code(s): R52 - PAIN, UNSPECIFIED (3) Hypomagnesemia Code(s): E83.42 - HYPOMAGNESEMIA (4) Left leg pain Code(s): M79.605 - PAIN IN LEFT LEG (5) Acute urinary retention Code(s): R33.8 - OTHER RETENTION OF URINE Assessment/Plan DECADRON IV CHANGE TO PO ON THURSDAY [facility]OR [facility]
[2016-10-03] MEDS ORDERED: INSULIN (NOVOLOG) ASPART 100 UNITS/ML 10ML VIAL ONE (19:25)
[2016-10-04] MEDS: DEXAMETHASONE SOD PHOSPHATE 4 MG/1 ML VIAL IVPB SCH ×3 (01:29→17:12)
[2016-10-04] MEDS: GABAPENTIN 300 MG CAPSULE (FP) PO SCH ×3 (06:30→22:22)
[2016-10-04] MEDS: INSULIN SLIDING SCALE (NOVOLOG) 1 VIAL SQ SCH ×4 (06:51→22:22)
[2016-10-04] MEDS ORDERED: INSULIN (NOVOLOG) ASPART 100 UNITS/ML 10ML VIAL ONE ×3 (06:52→17:10)
--- NOTE | 2016-10-04 07:31 | PN ---
Progress Note, Physician History of Present Illness: Dr Ortiz covering for Dr Obregon H/o hypertension, osteoarthritis, DM, DDD (old work injury years ago), chronic left knee pain, and LE neuropathy (numbness and tingling), c/o progressive left lower extremity pain for 3 weeks. Pain radiates from the left LB down his left posterior thigh, calf and ankle x 4 weeks. He states he has issue with his arms, L >R x 3 years but attributes this to his shoulder surgery. Numbness of feet x one yr ? urine retention when holcomb pulled , and put back in. EMG and MRI's reviewed as wll as Dr Osman notes. MRI T10-11 and T11-12 disc protrusion with mild thecal sac impingement; L L1-2 paracentral disc protrusion with L sided thecal sac impingement; R L3-4 paracentral disc protrusion with thecal sac and R L4 root impingement; board disc protrusion L4-5 and L5-S1 the moderate canal stenosis and lateral recess stenosis; L3-4 retrolisthesis, facet hypertrophy EMG/NCS - moderate peripheral neuropathy; acute ++ based on denervation in the sampled UE muscles as well, ie EDC and ABP. acute L L4-5 radiculopathy, though difficult rosa decipher in setting of neuropathy. - Current Medication List Current Medications: Active Medications Acetaminophen (Tylenol -) 650 mg PO Q6H PRN PRN Reason: FEVER OR PAIN Amlodipine Besylate (Norvasc -) 5 mg PO DAILY [facility] Last Admin: 10/03/16 17:46 Dose: 5 mg Dexamethasone Sodium Phosphate (Decadron Injection -) 4 mg IVPB Q8H-IV [facility] Last Admin: 10/04/16 01:29 Dose: 4 mg Gabapentin (Neurontin -) 300 mg PO TID [facility] Last Admin: 10/04/16 06:30 Dose: 300 mg Heparin Sodium (Porcine) (Heparin -) 5,000 unit SQ BID [facility] Last Admin: 10/03/16 21:53 Dose: 5,000 unit Insulin Aspart (Novolog Vial Sliding Scale -) 1 vial SQ ACHS [facility] PRN Reason: Protocol Last Admin: 10/04/16 06:51 Dose: 2 units Insulin Detemir (Levemir Vial) 20 units SQ HS [facility] Last Admin: 10/03/16 21:52 Dose: 20 units Losartan Potassium (Cozaar -) 50 mg PO DAILY [facility] Last Admin: 10/03/16 17:46 Dose: 50 mg Morphine Sulfate (Morphine Injection -) 4 mg IVPUSH Q4H PRN PRN Reason: PAIN Last Admin: 10/02/16 05:16 Dose: 4 mg Ondansetron HCl (Zofran Odt -) 4 mg SL Q6H PRN PRN Reason: NAUSEA AND/OR VOMITING Ranitidine HCl (Zantac -) 150 mg PO DAILY [facility] Last Admin: 10/03/16 09:19 Dose: 150 mg Tamsulosin HCl (Flomax -) 0.4 mg PO DAILY@0830 [facility] Last Admin: 10/03/16 09:18 Dose: 0.4 mg - Objective Vital Signs: Vital Signs Temperature 97.9 F 10/04/16 06:00 Pulse Rate 89 10/04/16 06:00 Respiratory Rate 20 10/04/16 06:00 Blood Pressure 144/59 10/04/16 06:00 O2 Sat by Pulse Oximetry (%) 99 10/03/16 21:00 Neurological: Yes: Other (Awake and alert; EOMI, no tongue fasiculations , UE significant proximal weakness deltoid, BI 3/5 and TR 4/5, ; interossei 5/5; no focal weakness in LE with best effort. holcomb in place. absnet BI, BR, 2++TR, patellar 1+, Achilles trace, plantars dwon, no fasciculations noted) Problem List - Problems (1) Acute urinary retention Code(s): R33.8 - OTHER RETENTION OF URINE (2) Back pain with left-sided sciatica Code(s): M54.32 - SCIATICA, LEFT SIDE (3) Intractable pain Code(s): R52 - PAIN, UNSPECIFIED (4) Cervical myelopathy Code(s): G95.9 - DISEASE OF SPINAL CORD, UNSPECIFIED (5) Neuropathy Code(s): G62.9 - POLYNEUROPATHY, UNSPECIFIED Assessment/Plan H/o hypertension, osteoarthritis, DM, DDD (old work injury years ago), chronic left knee pain, and LE neuropathy (numbness and tingling), c/o progressive left lower extremity pain for 3 weeks. Pain radiates from the left LB down his left posterior thigh, calf and ankle x 4 weeks. He states he has issue with his arms, L >R x 3 years but attributes this to his shoulder surgery. Numbness of feet x one yr ? urine retention when holcomb pulled , and put back in. EMG and MRI's reviewed as wll as Dr Osman notes. exam suggests C5/C6 myelopathy given proximal weakness delotid, BI >TR; less likley myopathy this may explain urinary retention though left leg sx may be related to spinal stenosis (unrealted ) vs neuropathy. Unclear etiology for neuropathy as well, (this usually causes distal weakness and PT has prox UE weakness) agree to not pursue surgery with unclear picture CHeck MRI C spine CPK, RADHA, ESR, SPEP, HIV, hep, B12 , A1c. urology FU consider doppler LLE . Dr Ortiz [phone]
[2016-10-04] MEDS: amLODIPine BESYLATE 5 MG TABLET (FP) PO SCH (09:43)
[2016-10-04] MEDS: LOSARTAN POTASSIUM 50 MG TABLET (FP) PO SCH (09:45)
[2016-10-04] MEDS: TAMSULOSIN HCL 0.4 MG CAP.ER.24H (FP) PO SCH (09:45)
[2016-10-04] MEDS: HEPARIN NA (PORCINE) 5,000 UNITS/ML 1ML VIAL SQ SCH ×2 (09:46→22:22)
--- NOTE | 2016-10-04 10:40 | PN ---
Progress Note, Physician - Current Medication List Current Medications: Active Medications Acetaminophen (Tylenol -) 650 mg PO Q6H PRN PRN Reason: FEVER OR PAIN Amlodipine Besylate (Norvasc -) 5 mg PO DAILY [facility] Last Admin: 10/04/16 09:43 Dose: 5 mg Dexamethasone Sodium Phosphate (Decadron Injection -) 4 mg IVPB Q8H-IV [facility] Last Admin: 10/04/16 10:21 Dose: 4 mg Gabapentin (Neurontin -) 300 mg PO TID [facility] Last Admin: 10/04/16 06:30 Dose: 300 mg Heparin Sodium (Porcine) (Heparin -) 5,000 unit SQ BID [facility] Last Admin: 10/04/16 09:46 Dose: 5,000 unit Insulin Aspart (Novolog Vial Sliding Scale -) 1 vial SQ ACHS [facility] PRN Reason: Protocol Last Admin: 10/04/16 06:51 Dose: 2 units Insulin Detemir (Levemir Vial) 20 units SQ HS [facility] Last Admin: 10/03/16 21:52 Dose: 20 units Losartan Potassium (Cozaar -) 50 mg PO DAILY [facility] Last Admin: 10/04/16 09:45 Dose: 50 mg Morphine Sulfate (Morphine Injection -) 4 mg IVPUSH Q4H PRN PRN Reason: PAIN Last Admin: 10/02/16 05:16 Dose: 4 mg Ondansetron HCl (Zofran Odt -) 4 mg SL Q6H PRN PRN Reason: NAUSEA AND/OR VOMITING Ranitidine HCl (Zantac -) 150 mg PO DAILY [facility] Last Admin: 10/03/16 09:19 Dose: 150 mg Tamsulosin HCl (Flomax -) 0.4 mg PO DAILY@0830 [facility] Last Admin: 10/04/16 09:45 Dose: 0.4 mg - Objective Vital Signs: Vital Signs Temperature 97.9 F 10/04/16 06:00 Pulse Rate 89 10/04/16 06:00 Respiratory Rate 20 10/04/16 06:00 Blood Pressure 144/59 10/04/16 06:00 O2 Sat by Pulse Oximetry (%) 99 10/03/16 21:00 Constitutional: Yes: Calm Neck: Yes: WNL Cardiovascular: Yes: WNL Respiratory: Yes: WNL Gastrointestinal: Yes: WNL Problem List - Problems (1) Acute urinary retention Code(s): R33.8 - OTHER RETENTION OF URINE (2) Back pain with left-sided sciatica Code(s): M54.32 - SCIATICA, LEFT SIDE (3) Cervical myelopathy Code(s): G95.9 - DISEASE OF SPINAL CORD, UNSPECIFIED (4) Neuropathy Code(s): G62.9 - POLYNEUROPATHY, UNSPECIFIED Assessment/Plan (1) Back pain with left-sided sciatica Code(s): M54.32 - SCIATICA, LEFT SIDE (2) Intractable pain Code(s): R52 - PAIN, UNSPECIFIED (3) Hypomagnesemia Code(s): E83.42 - HYPOMAGNESEMIA (4) Left leg pain Code(s): M79.605 - PAIN IN LEFT LEG (5) Acute urinary retention Code(s): R33.8 - OTHER RETENTION OF URINE Assessment/Plan DECADRON IV CHANGE TO PO ON THURSDAY [facility]OR [facility] PATIENT PULLED OUT KEATING -> MONITOR [employer] [facility]
[2016-10-04 10:51] LABS: HIV 1 & 2 AB NEGATIVE; HIV 1 AGp24 NEGATIVE
[2016-10-04] MEDS: RANITIDINE HCL 150 MG TABLET (FP) PO SCH (11:55)
--- NOTE | 2016-10-04 14:12 | PN ---
Progress Note (short form) - Note Progress Note: NEUROSURGERY Heller reinserted PE: Tmax 98.4, AF, VSS HEENT- NC/AT; Neck- supple; Cor- RRR; Lungs- CTA B; Abd-benign; Ext- no sign of DVT; 1-2+ pulses CN- intact; Motor 5/5 except L PF 4+; now with decreased range of motion L shoulder; Sensation- decreased vibration B feet; DTR- hyporeflexia B LE except R knee 2+; ambulating OOB earlier today MRI- T10-11 and T11-12 disc protrusion with mild thecal sac impingement; L L1-2 paracentral disc protrusion with L sided thecal sac impingement; R L3-4 paracentral disc protrusion with thecal sac and R L4 root impingement; board disc protrusion L4-5 and L5-S1 the moderate canal stenosis and lateral recess stenosis; L3-4 retrolisthesis, facet hypertrophy EMG/NCS - moderate peripheral neuropathy; acute L L4-5 radiculopathy Multilevel disease (R,L, and some bilateral) making surgical tx less favorable with more uncertain outcome given overlapping neuropathy Pt would like to avoid surgery C spine MRI per Dr Angel Diaz spine pathology common in face of extensive LS spine pathology Restarted on gabapentin
[2016-10-04] MEDS ORDERED: diazePAM 5 MG TABLET PO SCH (15:00)
[2016-10-04] MEDS: INSULIN DETEMIR 100 UNITS/ML MDV SQ SCH (22:23)
[2016-10-05] MEDS: DEXAMETHASONE SOD PHOSPHATE 4 MG/1 ML VIAL IVPB SCH ×3 (01:34→22:49)
[2016-10-05] MEDS: INSULIN SLIDING SCALE (NOVOLOG) 1 VIAL SQ SCH ×4 (06:37→22:45)
[2016-10-05] MEDS: GABAPENTIN 300 MG CAPSULE (FP) PO SCH ×3 (06:37→22:48)
--- NOTE | 2016-10-05 07:17 | PN ---
Progress Note (short form) - Note Progress Note: HPI : H/o hypertension, osteoarthritis, DM, DDD (old work injury years ago), chronic left knee pain, and LE neuropathy (numbness and tingling), c/o progressive left lower extremity pain for 3 weeks. Pain radiates from the left LB down his left posterior thigh, calf and ankle x 4 weeks. He states he has issue with his arms, L >R x 3 years but attributes this to his shoulder surgery. Numbness of feet x one yr ? urine retention when holcomb pulled , and put back in. EMG and MRI's reviewed as wll as Dr Osman notes. MRI T10-11 and T11-12 disc protrusion with mild thecal sac impingement; L L1-2 paracentral disc protrusion with L sided thecal sac impingement; R L3-4 paracentral disc protrusion with thecal sac and R L4 root impingement; board disc protrusion L4-5 and L5-S1 the moderate canal stenosis and lateral recess stenosis; L3-4 retrolisthesis, facet hypertrophy EMG/NCS - moderate peripheral neuropathy; acute ++ based on denervation in the sampled UE muscles as well, ie EDC and ABP. acute L L4-5 radiculopathy, though difficult rosa decipher in setting of neuropathy. FU: MRI C spine reviewed-- prelim C4/C5 cord compression with ABNL signal leg pain better holcomb in place - Current Medication List Current Medications: Active Medications Acetaminophen (Tylenol -) 650 mg PO Q6H PRN PRN Reason: FEVER OR PAIN Amlodipine Besylate (Norvasc -) 5 mg PO DAILY [facility] Last Admin: 10/03/16 17:46 Dose: 5 mg Dexamethasone Sodium Phosphate (Decadron Injection -) 4 mg IVPB Q8H-IV [facility] Last Admin: 10/04/16 01:29 Dose: 4 mg Gabapentin (Neurontin -) 300 mg PO TID [facility] Last Admin: 10/04/16 06:30 Dose: 300 mg Heparin Sodium (Porcine) (Heparin -) 5,000 unit SQ BID [facility] Last Admin: 10/03/16 21:53 Dose: 5,000 unit Insulin Aspart (Novolog Vial Sliding Scale -) 1 vial SQ ACHS [facility] PRN Reason: Protocol Last Admin: 10/04/16 06:51 Dose: 2 units Insulin Detemir (Levemir Vial) 20 units SQ HS [facility] Last Admin: 10/03/16 21:52 Dose: 20 units Losartan Potassium (Cozaar -) 50 mg PO DAILY [facility] Last Admin: 10/03/16 17:46 Dose: 50 mg Morphine Sulfate (Morphine Injection -) 4 mg IVPUSH Q4H PRN PRN Reason: PAIN Last Admin: 10/02/16 05:16 Dose: 4 mg Ondansetron HCl (Zofran Odt -) 4 mg SL Q6H PRN PRN Reason: NAUSEA AND/OR VOMITING Ranitidine HCl (Zantac -) 150 mg PO DAILY [facility] Last Admin: 10/03/16 09:19 Dose: 150 mg Tamsulosin HCl (Flomax -) 0.4 mg PO DAILY@0830 [facility] Last Admin: 10/03/16 09:18 Dose: 0.4 mg - Objective Vital Signs: stable Neurological: Yes: Other (Awake and alert; EOMI, no tongue fasiculations , UE significant proximal weakness deltoid, BI 3/5 and TR 4/5, ; interossei 5/5; no focal weakness in LE with best effort. holcomb in place. absnet BI, BR, 2++TR, patellar 1+, Achilles trace, plantars dwon, no fasciculations noted) Problem List Assessment/Plan H/o hypertension, osteoarthritis, DM, DDD (old work injury years ago), chronic left knee pain, and LE neuropathy (numbness and tingling), c/o progressive left lower extremity pain for 3 weeks. Pain radiates from the left LB down his left posterior thigh, calf and ankle x 4 weeks. He states he has issue with his arms, L >R x 3 years but attributes this to his shoulder surgery. Numbness of feet x one yr ? urine retention when holcomb pulled , and put back in. EMG and MRI's reviewed as wll as Dr Osman notes. exam suggests C5/C6 myelopathy given proximal weakness delotid, BI >TR; less likley myopathy this may explain urinary retention though left leg sx may be related to spinal stenosis (unrealted ) vs neuropathy. Unclear etiology for neuropathy as well, (this usually causes distal weakness and PT has prox UE weakness) MRI C spine prelim shows cord compression C4/C5--this would be the cause for severe proximla UE weakness-- will need surgical Follow up for this FU labs CPK, RADHA, ESR, SPEP, HIV, hep, B12 , A1c. Dr Ortiz [phone] Problem List - Problems (1) Acute urinary retention Code(s): R33.8 - OTHER RETENTION OF URINE (2) Back pain with left-sided sciatica Code(s): M54.32 - SCIATICA, LEFT SIDE (3) Intractable pain Code(s): R52 - PAIN, UNSPECIFIED (4) Cervical myelopathy Code(s): G95.9 - DISEASE OF SPINAL CORD, UNSPECIFIED (5) Neuropathy Code(s): G62.9 - POLYNEUROPATHY, UNSPECIFIED
[2016-10-05 08:32] LABS: BASOPHIL 0.1 % (0-2.0); MCHC 34.4 g/dl (32.0-35.9); MEAN CELL VOLUME 92.9 fl (80-96); MEAN PLT VOLUME 9.3 fl (7.5-11.1); NEUTROPHILS 92.2 % (42.8-82.8); PLATELET COUNT 191 K/MM3 (134-434); RDW 12.2 % (11.9-15.9); WHITE BLOOD COUNT 11.8 K/mm3 (4.0-10.0)
[2016-10-05 09:00] LABS: CALCIUM 8.9 mg/dL (8.5-10.1)
[2016-10-05 09:06] LABS: ALBUMIN 3.5 g/dl (3.4-5.0); ALK PHOS 68 U/L (45-117); ANION GAP 10 (8-16); BILIRUBIN,TOTAL 0.6 mg/dL (0.2-1.0); CO2 27 mmol/L (21-32); COCKROFT - GAULT 73.12; CREATININE 0.9 mg/dL (0.7-1.3); GLUCOSE,RANDOM 167 mg/dL (74-106); SGOT/AST 28 U/L (15-37); SGPT/ALT 37 U/L (12-78); TOT PROT 6.3 g/dl (6.4-8.2)
[2016-10-05] MEDS: LOSARTAN POTASSIUM 50 MG TABLET (FP) PO SCH (09:48)
[2016-10-05] MEDS: HEPARIN NA (PORCINE) 5,000 UNITS/ML 1ML VIAL SQ SCH ×2 (09:48→22:48)
[2016-10-05] MEDS: TAMSULOSIN HCL 0.4 MG CAP.ER.24H (FP) PO SCH (09:48)
[2016-10-05] MEDS: RANITIDINE HCL 150 MG TABLET (FP) PO SCH (09:48)
[2016-10-05] MEDS: amLODIPine BESYLATE 5 MG TABLET (FP) PO SCH (09:48)
[2016-10-05] MEDS ORDERED: INSULIN (NOVOLOG) ASPART 100 UNITS/ML 10ML VIAL ONE ×3 (11:30→22:44)
--- NOTE | 2016-10-05 15:16 | PN ---
Progress Note, Physician Chief Complaint: offered back surgery in past but refused 2/2 told no guarantee would be able to walk s/p surgery concerned about sick - Current Medication List Current Medications: Active Medications Acetaminophen (Tylenol -) 650 mg PO Q6H PRN PRN Reason: FEVER OR PAIN Amlodipine Besylate (Norvasc -) 5 mg PO DAILY [facility] Last Admin: 10/05/16 09:48 Dose: 5 mg Dexamethasone Sodium Phosphate (Decadron Injection -) 4 mg IVPB Q8H-IV [facility] Last Admin: 10/05/16 09:48 Dose: 4 mg Gabapentin (Neurontin -) 300 mg PO TID [facility] Last Admin: 10/05/16 13:39 Dose: 300 mg Heparin Sodium (Porcine) (Heparin -) 5,000 unit SQ BID [facility] Last Admin: 10/05/16 09:48 Dose: 5,000 unit Insulin Aspart (Novolog Vial Sliding Scale -) 1 vial SQ ACHS [facility] PRN Reason: Protocol Last Admin: 10/05/16 11:32 Dose: 10 units Insulin Detemir (Levemir Vial) 20 units SQ HS [facility] Last Admin: 10/04/16 22:23 Dose: 20 units Losartan Potassium (Cozaar -) 50 mg PO DAILY [facility] Last Admin: 10/05/16 09:48 Dose: 50 mg Morphine Sulfate (Morphine Injection -) 4 mg IVPUSH Q4H PRN PRN Reason: PAIN Last Admin: 10/02/16 05:16 Dose: 4 mg Ondansetron HCl (Zofran Odt -) 4 mg SL Q6H PRN PRN Reason: NAUSEA AND/OR VOMITING Ranitidine HCl (Zantac -) 150 mg PO DAILY [facility] Last Admin: 10/05/16 09:48 Dose: 150 mg Tamsulosin HCl (Flomax -) 0.4 mg PO DAILY@0830 [facility] Last Admin: 10/05/16 09:48 Dose: 0.4 mg - Objective Vital Signs: Vital Signs Temperature 97.4 F L 10/05/16 10:00 Pulse Rate 90 10/05/16 10:00 Respiratory Rate 18 10/05/16 10:00 Blood Pressure 122/67 10/05/16 10:00 O2 Sat by Pulse Oximetry (%) 99 10/03/16 21:00 Constitutional: Yes: Calm Neck: Yes: WNL Cardiovascular: Yes: WNL Respiratory: Yes: WNL Gastrointestinal: Yes: WNL Musculoskeletal: Yes: Back Pain Edema: No Labs: CBC, BMP 10/05/16 06:30 10/05/16 06:30 Problem List - Problems (1) Acute urinary retention Code(s): R33.8 - OTHER RETENTION OF URINE (2) Back pain with left-sided sciatica Code(s): M54.32 - SCIATICA, LEFT SIDE (3) Cervical myelopathy Code(s): G95.9 - DISEASE OF SPINAL CORD, UNSPECIFIED (4) Neuropathy Code(s): G62.9 - POLYNEUROPATHY, UNSPECIFIED Assessment/Plan (1) Back pain with left-sided sciatica Code(s): M54.32 - SCIATICA, LEFT SIDE (2) Intractable pain Code(s): R52 - PAIN, UNSPECIFIED (3) Hypomagnesemia Code(s): E83.42 - HYPOMAGNESEMIA (4) Left leg pain Code(s): M79.605 - PAIN IN LEFT LEG (5) Acute urinary retention Code(s): R33.8 - OTHER RETENTION OF URINE Assessment/Plan DECADRON IV TAPER INSULIN ADJUSTED SNF KEATING Cr NOT INCREASING PT ON CASE NEURO & NEUROSURG CONSULTS APPRECIATED UNCLEAR ETIOLOGY 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
[2016-10-05] MEDS ORDERED: INSULIN DETEMIR 100 UNITS/ML MDV SQ SCH (22:00)
[2016-10-06] MEDS: INSULIN SLIDING SCALE (NOVOLOG) 1 VIAL SQ SCH ×3 (06:31→17:13)
[2016-10-06] MEDS: GABAPENTIN 300 MG CAPSULE (FP) PO SCH ×2 (06:32→14:16)
[2016-10-06 07:56] LABS: BASOPHIL 0.1 % (0-2.0); MCHC 34.4 g/dl (32.0-35.9); MEAN CELL VOLUME 92.9 fl (80-96); MEAN PLT VOLUME 8.9 fl (7.5-11.1); PLATELET COUNT 194 K/MM3 (134-434); RDW 12.1 % (11.9-15.9); WHITE BLOOD COUNT 9.9 K/mm3 (4.0-10.0)
[2016-10-06 08:29] LABS: ALBUMIN 3.7 g/dl (3.4-5.0); ANION GAP 12 (8-16); CO2 25 mmol/L (21-32); GLUCOSE,RANDOM 149 mg/dL (74-106)
[2016-10-06 08:34] LABS: ALK PHOS 70 U/L (45-117); BILIRUBIN,TOTAL 0.7 mg/dL (0.2-1.0); COCKROFT - GAULT 82.26; CREATININE 0.8 mg/dL (0.7-1.3); SGOT/AST 29 U/L (15-37); SGPT/ALT 41 U/L (12-78); TOT PROT 6.5 g/dl (6.4-8.2)
[2016-10-06] MEDS ORDERED: INSULIN DETEMIR 100 UNITS/ML MDV SQ SCH (10:00)
[2016-10-06] MEDS: DEXAMETHASONE SOD PHOSPHATE 4 MG/1 ML VIAL IVPB SCH (10:06)
[2016-10-06] MEDS: RANITIDINE HCL 150 MG TABLET (FP) PO SCH (10:06)
[2016-10-06] MEDS: LOSARTAN POTASSIUM 50 MG TABLET (FP) PO SCH (10:06)
[2016-10-06] MEDS: amLODIPine BESYLATE 5 MG TABLET (FP) PO SCH (10:06)
[2016-10-06] MEDS: TAMSULOSIN HCL 0.4 MG CAP.ER.24H (FP) PO SCH (10:06)
[2016-10-06] MEDS: HEPARIN NA (PORCINE) 5,000 UNITS/ML 1ML VIAL SQ SCH (10:06)
[2016-10-06] MEDS ORDERED: INSULIN (NOVOLOG) ASPART 100 UNITS/ML 10ML VIAL ONE ×2 (11:25→17:11)
--- NOTE | 2016-10-06 11:51 | PN ---
Progress Note (short form) - Note Progress Note: Neurology The patient is a 66 year old male, with a significant past medical history of hypertension, dyslipidemia, arthritis, herniated discs, chronic left knee pain, and neuropathy (taking Gabapentin and Lyrica), who presented to the emergency department for progressive left lower extremity pain for 3 weeks. He states his pain radiates from the left side of his lower back down his left leg. He states he has not been able to bear weight on his left lower extremity or lie on his left side secondary to his pain. He reports calling Dr. Novoa this morning and being referred to the ED. The patient denies having recent imaging. Completed MRI C Spine and L spine. He has been put on pain medication and seen by Dr. Reji Osman for possible surgical intervention. Patient not interested in surgical management at this time. Spoke to son at bedside and they are considering physical therapy and detention facility placement with medication treatment. Active Medications Acetaminophen (Tylenol -) 650 mg PO Q6H PRN PRN Reason: FEVER OR PAIN Amlodipine Besylate (Norvasc -) 5 mg PO DAILY [facility] Last Admin: 10/06/16 10:06 Dose: 5 mg Dexamethasone Sodium Phosphate (Decadron Injection -) 4 mg IVPB BID [facility] Last Admin: 10/06/16 10:06 Dose: 4 mg Gabapentin (Neurontin -) 300 mg PO TID [facility] Last Admin: 10/06/16 06:32 Dose: 300 mg Heparin Sodium (Porcine) (Heparin -) 5,000 unit SQ BID [facility] Last Admin: 10/06/16 10:06 Dose: 5,000 unit Insulin Aspart (Novolog Vial Sliding Scale -) 1 vial SQ ACHS [facility] PRN Reason: Protocol Last Admin: 10/06/16 11:29 Dose: 8 units Insulin Detemir (Levemir Vial) 25 units SQ HS [facility] Last Admin: 10/05/16 22:42 Dose: 25 units Insulin Detemir (Levemir Vial) 10 units SQ DAILY [facility] Last Admin: 10/06/16 10:06 Dose: 10 units Losartan Potassium (Cozaar -) 50 mg PO DAILY [facility] Last Admin: 10/06/16 10:06 Dose: 50 mg Morphine Sulfate (Morphine Injection -) 4 mg IVPUSH Q4H PRN PRN Reason: PAIN Last Admin: 10/02/16 05:16 Dose: 4 mg Ondansetron HCl (Zofran Odt -) 4 mg SL Q6H PRN PRN Reason: NAUSEA AND/OR VOMITING Ranitidine HCl (Zantac -) 150 mg PO DAILY [facility] Last Admin: 10/06/16 10:06 Dose: 150 mg Tamsulosin HCl (Flomax -) 0.4 mg PO DAILY@0830 [facility] Last Admin: 10/06/16 10:06 Dose: 0.4 mg *Physical Exam Vital Signs Period Temp Pulse Resp BP Sys/Zaman Pulse Ox Last 24 Hr 97.3 F-98.1 F 63-90 16-20 116-140/58-88 99 GENERAL: (+) Pt appears uncomfortable. Awake, alert, and fully oriented, in no acute distress HEAD: No signs of trauma EYES: PERRLA, EOMI, sclera anicteric, conjunctiva clear ENT: Auricles normal inspection, hearing grossly normal, nares patent, oropharynx clear without exudates. Moist mucosa NECK: Normal ROM, supple, no lymphadenopathy, JVD, or masses LUNGS: Breath sounds equal, clear to auscultation bilaterally. No wheezes, and no crackles HEART: Regular rate and rhythm, normal S1 and S2, no murmurs, rubs or gallops ABDOMEN: Soft, nontender, normoactive bowel sounds. No guarding, no rebound. No masses EXTREMITIES: Normal range of motion, no edema. No clubbing or cyanosis. No cords, erythema, or tenderness NEUROLOGICAL: Cranial nerves II through XII grossly intact. Normal speech, Motor 5/5 except LLE 4/5; reflexes 1+, gait deferred SKIN: Warm, Dry, normal turgor, no rashes or lesions noted. Plan: 66 year old male, with a significant past medical history of hypertension, dyslipidemia, arthritis, herniated discs, chronic left knee pain, and neuropathy (taking Gabapentin and Lyrica), who presented to the emergency department for progressive left lower extremity pain for 3 weeks. He states his pain radiates from the left side of his lower back down his left leg. He states he has not been able to bear weight on his left lower extremity or lie on his left side secondary to his pain. MRI C and L spine compelted with multilevel herniations, and impingements Seen by Dr. Reji Osman Pain mgmt Monitor sedation with opiod medications (morphine) Agree with Decadron, monitor surgars, on Insulin for DM PPI Family interested in rehab placement and patient reluctant toward surgery DVT ppx Fall precautions
[2016-10-06 14:12] LABS: HEP B SURFACE AB Non Reactive (.)
[2016-10-06 18:40] VITALS: BP 113/65; PULSE 80; TEMP 97.9
--- NOTE | 2016-10-06 19:11 | DS ---
[id number] Rate 17 10/06/16 18:37 Blood Pressure 113/65 10/06/16 18:37 O2 Sat by Pulse Oximetry (%) 99 10/05/16 22:00 Constitutional: Yes: Calm Neck: Yes: WNL Cardiovascular: Yes: WNL Respiratory: Yes: WNL Gastrointestinal: Yes: WNL Edema: No Labs: CBC, BMP 10/06/16 06:50 10/06/16 06:50 Discharge Summary Reason For Visit: INTRACT PAOM/BACK PAIN W/ LEFT SIDE SCIATICA Current Active Problems Acute urinary retention (Acute) Back pain with left-sided sciatica (Acute) Cervical myelopathy (Acute) Intractable pain (Acute) Neuropathy (Acute) Hospital Course: (1) Back pain with left-sided sciatica Code(s): M54.32 - SCIATICA, LEFT SIDE (2) Intractable pain Code(s): R52 - PAIN, UNSPECIFIED (3) Hypomagnesemia Code(s): E83.42 - HYPOMAGNESEMIA (4) Left leg pain Code(s): M79.605 - PAIN IN LEFT LEG (5) Acute urinary retention Code(s): R33.8 - OTHER RETENTION OF URINE Assessment/Plan DECADRON TAPER INSULIN ADJUSTED Cr NOT INCREASING PT ON CASE NEURO & NEUROSURG CONSULTS APPRECIATED PATIENT REFUSES SNF SURGERY NOT PLANNED PATIENT ANXIOUS TO GO HOME TO CARE FOR ILL DISCHARGE WILL NEED TO F/U WITH PCP IN 1 WEEK 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 Referrals: Tal Roblero MD [Staff Physician] - Enmanuel Novoa MD [Primary Care Provider] - Disposition: HOME - Home Medications Comprehensive Discharge Medication List: Ambulatory Orders Amlodipine Besylate [Norvasc -] 5 mg PO DAILY 09/11/16 Aspirin [ASA -] 81 mg PO DAILY 09/11/16 Meloxicam 7.5 mg PO DAILY 09/11/16 Gabapentin 300 mg PO TID 10/01/16 Insulin Degludec [Tresiba Flextouch U-200] 20 units SQ DAILY 10/01/16 Pravastatin Sodium [Pravachol -] 1 tab PO DAILY 10/01/16 Acetaminophen [Tylenol .Regular Strength -] 650 mg PO Q6H PRN #0 tablet Amlodipine Besylate [Norvasc -] 5 mg PO DAILY #30 tablet 10/06/16 Gabapentin [Neurontin -] 300 mg PO TID #90 cap 10/06/16 Losartan Potassium [Cozaar -] 50 mg PO DAILY #30 tablet 10/06/16 Ranitidine [Zantac -] 150 mg PO DAILY #30 tablet 10/06/16 Tamsulosin HCl [Flomax -] 0.4 mg PO DAILY@0830 #30 tab 10/06/16
[2016-10-08 00:07] LABS: A/G RATIO 1.4 (0.7-1.7); ALBUMIN 3.4 g/dL (2.9-4.4); GLOBULIN, TOTAL 2.5 g/dL (2.2-3.9); M-SPIKE Not Observed g/dL (Not Observed); TOTAL PROTEIN 5.9 g/dL (6.0-8.5)
== END 2016-10-06 19:11 | disposition home or self-care (01) | DRG 552 ==
LOC: JER 12:11 → JERBED 17:15 → J6S 20:29 → OBSVTOIN 10-02 10:57
PROVIDERS: ADMIT Family Medicine; ATTEND Family Medicine
DX: M54.32 Sciatica, left side (principal); G95.9 Disease of spinal cord, unspecified; I10 Essential (primary) hypertension; E78.5 Hyperlipidemia, unspecified; M19.90 Unspecified osteoarthritis, unspecified site; Z79.4 Long term (current) use of insulin; E11.40 Type 2 diabetes mellitus with diabetic neuropathy, unspecified; M25.562 Pain in left knee; E11.42 Type 2 diabetes mellitus with diabetic polyneuropathy; E83.42 Hypomagnesemia; R33.9 Retention of urine, unspecified; E11.65 Type 2 diabetes mellitus with hyperglycemia; R26.9 Unspecified abnormalities of gait and mobility
CPT/HCPCS: 36415; 72100-TC; 72131-TC; 72141-TC; 72148-TC; 80053; 81003; 82550; 82607; 83036; 83735; 84155; 84165; 85025; 85027; 85651; 86038; 86140; 86593; 86704; 86706; 86708; 87086; 87340; 87389; 95860-TC; 97116-GP; 97162-PG; 99284-25; G0378; J1644

== ENCOUNTER 2020-07-05 10:37 | Emergency (ER) | payer MEDICARE, OTHER ==
[2020-07-05 11:35] VITALS: PULSE 92; BMI 26.2
[2020-07-05 11:50] LABS: BASO % 0.4 % (0-2.0); EOS % 1.4 % (0-4.5); HEMATOCRIT 35.5 % (35.4-49); HEMOGLOBIN 11.4 GM/dL (11.7-16.9); LYMPH % 8.8 % (8-40); MCH 29.1 pg (25.7-33.7); MCHC 32.2 g/dl (32.0-35.9); MEAN CELL VOLUME 90.3 fl (80-96); MEAN PLT VOLUME 9.1 fl (7.5-11.1); MONO % 14.4 % (3.8-10.2); PLATELET COUNT 203 K/MM3 (134-434); RBC 3.93 M/mm3 (4.00-5.60); RDW 14.3 % (11.9-15.9); WHITE BLOOD COUNT 4.9 K/mm3 (4.0-10.0)
[2020-07-05 11:52] LABS: VENOUS BASE EXCESS -0.9 mmol/L (-2-2); VENOUS O2 SATURATION 57.2 % (70-80); VENOUS PCO2 42.7 mmHg (38-52); VENOUS PH 7.374 (7.310-7.410)
[2020-07-05 11:58] LABS: PH,URINE 6.5 (5.0-8.0); URINE APPEARANCE CLEAR; URINE BILIRUBIN NEGATIVE (NEGATIVE); URINE COLOR YELLOW; URINE GLUCOSE (UA) 1+ (NEGATIVE); URINE KETONE NEGATIVE (NEGATIVE); URINE LEUK ESTERASE NEGATIVE (NEGATIVE); URINE NITRITE NEGATIVE (NEGATIVE); URINE PROTEIN TRACE (NEGATIVE)
[2020-07-05 12:00] LABS: INR 1.09 (0.83-1.09); PROTHROMBIN TIME (PATIENT) 13.2 SEC (9.7-13.0)
[2020-07-05 12:11] LABS: CHLORIDE 105 mmol/L (98-107); POTASSIUM 4.1 mmol/L (3.5-5.1); SODIUM 139 mmol/L (136-145)
[2020-07-05 12:18] LABS: ALBUMIN 4.2 g/dl (3.4-5.0); ANION GAP 5 MMOL/L (8-16); BILIRUBIN,DIRECT 0.1 mg/dL (0.0-0.2); BILIRUBIN,TOTAL 0.4 mg/dL (0.2-1); BLOOD UREA NITROGEN 19.2 mg/dL (7-18); CALCIUM 9.2 mg/dL (8.5-10.1); CO2 29 mmol/L (21-32); CREATININE 0.8 mg/dL (0.55-1.3); GLUCOSE,RANDOM 127 mg/dL (74-106); LDH 277 U/L (87-246); SGOT/AST 41 U/L (15-37); SGPT/ALT 22 U/L (13-61); TOT PROT 7.2 g/dl (6.4-8.2)
[2020-07-05 12:20] LABS: ALK PHOS 61 U/L (45-117)
[2020-07-05] MEDS ORDERED: ACETAMINOPHEN 1000 MG/100 ML VIAL (NON FORMULARY) IVPB ONE (14:01)
[2020-07-05] MEDS ORDERED: ACETAMINOPHEN INJECTION 100 ML IVPB ONE (14:09)
[2020-07-05] MEDS ORDERED: CASIRIVIMAB (REGN10933) 1,200 MG, IMDEVIMAB (REGN10987) 1,200 MG in SODIUM CHLORIDE 230 ML IVPB ONE (14:22)
[2020-07-05 16:33] VITALS: BP 138/69; TEMP 100.5
== END 2020-07-05 17:48 | disposition home or self-care (01) ==
LOC: JER 10:37
PROC: 3E0333Z Introduction of Anti-inflammatory into Peripheral Vein, Percutaneous Approach (ICD-10-PCS; principal; 2020-07-05)
PROC: 3E03329 Introduction of Other Anti-infective into Peripheral Vein, Percutaneous Approach (ICD-10-PCS; 2020-07-05)
DX: U07.1 COVID-19 (principal)
CPT/HCPCS: 36415; 71045-TC-FY; 80053; 81003; 82248; 82550; 82553; 82728; 82803; 83605; 83615; 84484; 85025; 85379; 85610; 85730; 86140; 87040; 87086; 87804; 93005; 93010; 96374; 96375; 99285-25; C9803; J0131; M0243; Q0243; U0003